=== PATIENT | male | born 1960 | race Native Hawaiian/Other Pacific Islander ===

== ENCOUNTER 2020-07-18 15:13 | Outpatient (CLI) | payer MEDICARE, OTHER ==
[~2020-07-18] VITALS: Ht 170.8 cm; Wt 107.0 kg
== END 2020-07-18 20:00 | disposition home or self-care (01) ==
LOC: INF 15:13
PROVIDERS: ATTEND Internal Medicine
DX: U07.1 COVID-19 (principal); I10 Essential (primary) hypertension
CPT/HCPCS: Q0239